=== PATIENT | male | born 1965 | race Caucasian/White ===

== ENCOUNTER 2016-10-10 23:43 | Emergency (ER) | payer OTHER ==
[~2016-10-10] VITALS: Ht 180.3 cm; Wt 100.7 kg
[~2016-10-10 23:43] MED LIST: ALBUTEROL0.09 MG/A1 INH; AMOXIL 875 MG875 MG PO; FLEXERIL10 MG PO; MOTRIN 600 MG600 MG PO; OXYCODONE HYDRO15 MG PO; ULTRAM(MONOGRAP50 MG PO
--- NOTE | 2016-10-11 00:26 | ED GI/GU/ABDOMINAL COMPLAINT ---
History of Present Illness General Chief Complaint: Abdominal Pain/Flank Pain Stated Complaint: RT SIDE FLANK PAIN Source: patient Exam Limitations: no limitations Allergies Coded Allergies: NO KNOWN ALLERGIES (10/10/16) Reconcile Medications Albuterol Sulfate (Albuterol Sulfate Hfa) 0.09 MG/Actuation TIM 2 PUFF INH Q4- 6 PRN PRN SHORTNESS OF BREATH, COUGH 90 MCG PER PUFF Amoxicillin (Amoxil 875 MG Tablets) 875 MG TAB 1 TAB PO BID BRONCHITIS Cyclobenzaprine HCl 10 MG TABLET 1 TAB PO QPM PRN SPASM DO NOT DRIVE WITH THIS MEDICATION CYCLOBENZAPRINE HCL (Flexeril) 10 MG TABLET 1 TAB PO TID PRN PAIN Ibuprofen (Motrin 600 MG Tab) 600 MG TAB 1 TAB PO Q6P PRN PAIN Meloxicam (Mobic) 15 MG TABLET 1 TAB PO DAILY DJD Oxycodone Hydrochloride 15 MG TAB 1 TAB PO 4 TIMES/DAY PAIN (Reported) Tramadol HCl (Ultram) 50 MG TAB 1-2 TAB PO Q6 PRN severe pain Triage Note: TRIAGE: PT TO ER C/C INTERMITTENT R FLANK PAIN SINCE 16:00. DESCRIBES THROBBING AND PULSATING. COMES ON EVERY 5 MINUTES OR SO. DENIES NAUSEA TODAY BUT STATES "I'VE BEEN HAVING NAUSEA IN THE MORNINGS FOR A WHILE". -VOMITING TODAY BUT SOME MORNINGS HAS SOME "SPIT UP". DENIES DIARRHEA TODAY BUT HAS IT "SOMETIMES". LNBM TODAY. -URINARY S/S. Triage Nurses Notes Reviewed? yes Onset: Abrupt Duration: hour(s):, intermittent Timing: recent history Quality/Severity: moderate, sharpness, severe Radiation: flank Activities at Onset: none No Modifying Factors: none HPI: 51-year-old male comes into emergency room with right-sided flank pain has been going on intermittently for the past 4 hours. Patient reports that he was sick last week with nausea vomiting but those symptoms have resolved. Denies any abdominal pain. Denies any urinary symptoms. Is any chest pain shortness of breath. Denies any changes in bowel movement. Denies any fever chills from like symptoms. Nothing seems to make the symptoms better or worse. Pain is sporadic but is very sharp in spasmatic when it comes on. (LESLIE SAINI,SANJUANA) Vital Signs & Intake/Output Vital Signs & Intake/Output Vital Signs Date Time Temp Pulse Resp B/P Pulse O2 O2 Flow FiO2 Ox Delivery Rate 10/11 0537 96.7 79 18 117/73 94 Room Air 10/11 0435 98.0 85 20 139/92 95 Room Air 10/11 0148 98.1 88 20 137/82 96 Room Air 10/11 0101 Room Air Room Air 10/10 2351 967.0 90 20 137/98 97 Room Air ED Intake and Output 10/11 0000 10/10 1200 Intake Total Output Total Balance Patient 222 lb Weight Past History Travel History Traveled to [place] past 21 day No Medical History Any Pertinent Medical History? 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 No (SANJUANA ANGELO) Review of Systems Review of Systems Constitutional: Reports: no symptoms. EENTM: Reports: no symptoms. Respiratory: Reports: no symptoms. Cardiovascular: Reports: no symptoms. GI: Reports: no symptoms. Genitourinary: Reports: see HPI. Musculoskeletal: Reports: see HPI. Skin: Reports: no symptoms. Neurological/Psychological: Reports: no symptoms. Hematologic/Endocrine: Reports: no symptoms. Immunologic/Allergic: Reports: no symptoms. All Other Systems: Reviewed and Negative (SANJUANA ANGELO) Physical Exam Physical Exam General Appearance: well developed/nourished, no apparent distress, alert Head: atraumatic, normal appearance Eyes: Bilateral: normal appearance, EOMI. Ears, Nose, Throat, Mouth: hearing grossly normal, moist mucous membrane Neck: normal inspection, full range of motion Respiratory: normal breath sounds, no respiratory distress Cardiovascular: regular rate/rhythm, tachycardia Gastrointestinal: soft, non-tender Back: normal inspection, normal range of motion, no CVA tenderness Extremities: normal range of motion Neurologic/Psych: awake, alert, oriented x 3, normal gait, normal mood/affect Skin: intact, normal color Core Measures ACS in differential dx? No Severe Sepsis Present: No Septic Shock Present: No (SANJUANA ANGELO) Progress Differential Diagnosis: AAA, AMI, appendicitis, biliary colic, bowel obstruction , colon cancer, cholecystitis, diverticulitis, hernia, pancreatitis, peptic ulcer, PUD/GERD, pyelonephritis, SBO, ureterolithiasis, urinary retention, urethritis, UTI/pyelo Initial ED EKG: none Hand-Off Endorsed To: TONY SINHA MD Endorsed Time: 29 Pending: CT, labs (SANJUANA ANGELO) Plan of Care: Orders Procedure Date/time Status Add-on Test (ER Only) 10/11 013 Active URINE DRUGS OF ABUSE 10/11 29 Complete URINALYSIS 10/11 21 Complete LIPASE 10/11 21 Complete COMPREHENSIVE METABOLIC PANEL 10/11 21 Complete CBC WITHOUT DIFFERENTIAL 10/11 21 Complete Laboratory Tests 10/11/16 0045: Anion Gap 12, Estimated GFR > 60, BUN/Creatinine Ratio 15.8, Glucose 99, Calcium 10.1, Total Bilirubin 1.8 H, AST 163 H, ALT 389 H, Alkaline Phosphatase 66, Total Protein 8.3 H, Albumin 4.9, Globulin 3.4, Albumin/Globulin Ratio 1.4, Lipase 191, CBC w Diff NO MAN DIFF REQ, RBC 5.12, MCV 93.8, MCH 32.2 H, RDW 13.7, MPV 7.7, Gran % 53.4, Lymphocytes % 30.7, Monocytes % 12.2 H, Eosinophils % 3.0, Basophils % 0.7, Absolute Granulocytes 4.0, Absolute Lymphocytes 2.3, Absolute Monocytes 0.9 H, Absolute Eosinophils 0.2, Absolute Basophils 0.1, PUBS MCHC 34.3 10/11/16 003: Urine Opiates Screen 122.00, Methadone Screen < 40, Barbiturate Screen < 60, Ur Phencyclidine Scrn < 6.00, Amphetamines Screen 320, U Benzodiazepines Scrn < 85, Urine Cocaine Screen > 1000 H, Urine Cannabis Screen < 5.00, Urine Color YEL, Urine Clarity CLEAR, Urine pH 6.0, Ur Specific [place] 1.010, Urine Protein NEG, Urine Ketones NEG, Urine Nitrite NEG, Urine Bilirubin NEG, Urine Urobilinogen 0.2, Ur Leukocyte Esterase NEG, Ur Microscopic EXAM NOT REQUIRED, Urine Hemoglobin NEG, Urine Glucose NEG 12:43 pm PENDING LABS/REEVALUATION. LIKELY RENAL COLIC. 1:48 AM STILL IN SEVERE PAIN. DILAUDID/VALIUM ORDERED. CBC WNL, URINALYSIS WNL. CT SCAN ORDERED PATIENT TO GO TO [facility]. (TONY SINHA MD) Diagnostic Imaging: Viewed by Me: CT Scan. Discussed w/RAD: CT Scan. Radiology Impression: 5:24 am report DIFFUSE FATTY INFILTRATION OF THE LIVER SEVERE DJD RIGHT HIP NO NEPHROURETEROLITHIASIS OR OBSTRUCTIVE UROPATHY STREAK ARTIFACT FROM LEFT HIP PROSTHESIS LIMITING EVALUATION OF BLADDER AND DISTAL LEFT URETER (ERNESTINE WU,TONY) Departure Departure Referrals: MAURO WU,ALCON Schilling (PCP/Family) Departure Forms: Customer Survey General Discharge Information (SANJUANA ANGELO) Departure Time of Disposition: 524 Disposition: HOME OR SELF CARE Condition: Stable Clinical Impression Primary Impression: Flank pain Secondary Impressions: Degenerative joint disease of right hip Additional Instructions: FOLLOW UP WITH YOUR DOCTOR IN THE OFFICE. TAKE THE MELOXICAM DIRECTED. AVOID ANY ILLICIT SUBSTANCE ABUSE. RETURN TO THE ER FOR ANY CHANGING OR WORSENING SYMPTOMS. Prescriptions: Current Visit Scripts Meloxicam (Mobic) 1 TAB PO DAILY #30 TAB Cyclobenzaprine HCl 1 TAB PO QPM PRN SPASM #[address] WITH THIS MEDICATION PA/LIGHT ARMORED VEHICLE OFFICER Co-Sign Statement Statement: ED Attending supervision documentation- [] I saw and evaluated the patient. I have also reviewed all the pertinent lab results and diagnostic results. I agree with the findings and the plan of care as documented in the PA's/LIGHT ARMORED VEHICLE OFFICER's documentation. [X] I have reviewed the ED Record and agree with the PA's/LIGHT ARMORED VEHICLE OFFICER's documentation. [] Additions or exceptions (if any) to the PAs/LIGHT ARMORED VEHICLE OFFICER's note and plan are summarized below: [] (ERNESTINE WU,TONY)
[2016-10-11 01:13] LABS: ABSOLUTE BASOPHIL COUNT 0.1 /CUMM (0.0-0.2); ABSOLUTE EOSINOPHIL COUNT 0.2 /CUMM (0.0-0.7); ABSOLUTE LYMPH COUNT 2.3 /CUMM (1.2-3.4); ABSOLUTE MONOCYTE COUNT 0.9 /CUMM (0.10-0.60); BASOPHIL % 0.7 % (0.0-2.0); GRANULOCYTE % 53.4 % (42.2-75.2); HEMATOCRIT 48.1 % (42-52); MEAN CORPUSCULAR HGB 32.2 PG (27.0-31.0); MEAN CORPUSCULAR HGB CONC 34.3 G/DL (33.0-37.0); MEAN CORPUSCULAR VOLUME 93.8 FL (80.0-94.0); MEAN PLATELET VOLUME 7.7 FL (7.4-10.4); PLATELET COUNT 227 /CUMM (130-400); RBC DISTRIBUTION WIDTH 13.7 % (11.5-14.5); RED BLOOD CELL CT 5.12 /CUMM (4.70-6.10); WHITE BLOOD CELL COUNT 7.5 /CUMM (4.8-10.8)
[2016-10-11] MEDS ORDERED: CYCLOBENZAPRINE10 M1 PO (05:27)
[2016-10-11] MEDS ORDERED: MOBIC15 M1 PO (05:27)
[2016-10-11 05:37] VITALS: BP 117/73
== END 2016-10-11 05:38 ==
LOC: ERH 23:43
PROVIDERS: Physician Assistant Medical
DX: R10.9 Unspecified abdominal pain (principal); M16.11 Unilateral primary osteoarthritis, right hip
CPT/HCPCS: 80307; 81003; 96374; 96375; 96376; J1885; J3360